=== PATIENT | male | born 1990 | race Caucasian/White ===

== ENCOUNTER 2019-03-01 12:10 | Emergency (ER) | payer MEDICAID ==
[~2019-03-01] VITALS: Ht 170.2 cm; Wt 88.9 kg
[2019-03-01 12:10] VITALS: BP 142/87
--- NOTE | 2019-03-01 12:19 | NUR ---
BIBA TO BED 5
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
--- NOTE | 2019-03-01 12:21 | NUR ---
ACCU CHECK 103
--- NOTE | 2019-03-01 12:22 | NUR ---
IV INSERTED BY EMS, PT RECEIVED 500 ML NS BOLUS IN ROUTE
[2019-03-01] MEDS ORDERED: NACL 0.9% 1,000 ML IV ONE ×2 (12:25→12:45)
--- NOTE | 2019-03-01 12:50 | NUR ---
UNABLE TO COMPLETE EKG AT THIS TIME; PT REMAINS UNCOOPERATIVE. NOTIFIED
--- NOTE | 2019-03-01 12:58 | NUR ---
REMAINS NON VERBAL--PT WILL CLENCH A FIST AND TAKE FAST DEEP BREATH- ENCOURAGED TO TRY AND RELAX WITH SLOW DEEP BREATH---REASSURED WE ARE HERE TO HELP.
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
[2019-03-01 13:55] LABS: BASOPHILS # (AUTO) 0.1 K/uL (0.00-0.22); BASOPHILS % (AUTO) 0.6 % (0.0-2.0); EOSINOPHILS % (AUTO) 0.4 % (0.0-4.0); HEMATOCRIT 45.4 % (36-52); HEMOGLOBIN 15.1 g/dL (12.0-18.0); LYMPHOCYTES # (AUTO) 1.7 K/uL (2.0-11.5); LYMPHOCYTES % (AUTO) 16.3 % (20.5-51.1); MEAN CORPUSCULAR HEMOGLOBIN 29 pg (27-31); MEAN CORPUSCULAR HGB CONC 33 g/dL (33-37); MEAN CORPUSCULAR VOLUME 87.1 fL (80-94); MONOCYTES # (AUTO) 0.9 K/uL (0.8-1.0); MONOCYTES % (AUTO) 8.4 % (1.7-9.3); NEUTROPHILS # (AUTO) 7.7 K/uL (1.8-7.7); NEUTROPHILS % (AUTO) 74.3 % (42.2-75.2); PLATELET COUNT (AUTO) 261 K/uL (140-450); RED BLOOD CELL COUNT(AUTO) 5.21 MIL/uL (4.20-6.10); RED CELL DISTRIBUTION WIDTH 13.4 % (11.6-13.7); WHITE BLOOD COUNT (AUTO) 10.4 K/uL (4.8-10.8)
[2019-03-01 14:02] LABS: ALBUMIN 3.8 g/dL (3.4-5.0); ANION GAP 14.3 (8-16); ASPARTATE AMINOTRANSFERASE 26 U/L (15-37); CARBON DIOXIDE 23.3 mmol/L (21-32); CHLORIDE 107 mmol/L (98-107); CREATININE 1.2 mg/dL (0.7-1.3); GFR ARICAN-AMERICAN 91 mL/min (>90); GLUCOSE 91 mg/dL (74-106); POTASSIUM 3.6 mmol/L (3.5-5.1); SODIUM SERUM 141 mmol/L (136-145); TOTAL BILIRUBIN 0.5 mg/dL (0.0-1.0); UREA NITROGEN, BLOOD 16 mg/dL (7-18)
[2019-03-01] MEDS ORDERED: KETOROLAC 30 MG/ML VIAL IVP ONE (15:05)
[2019-03-01] MEDS ORDERED: LORazepam 2 MG/ML VIAL IVP ONE (15:05)
[2019-03-01] MEDS ORDERED: IBUPROFEN 600 MG TAB PO ONE (15:20)
[2019-03-01 15:50] VITALS: BP 148/98
--- NOTE | 2019-03-01 15:50 | NUR ---
Patient discharged with v/s stable. Written and verbal after care instructions given and explained. Patient verbalized understanding. Ambulatory with steady gait. All questions addressed prior to discharge. Advised to follow up with PMD.
--- NOTE | 2019-03-01 15:50 | NUR ---
PER PT HE LIVES IN AN APARTMENT
== END 2019-03-01 15:50 | disposition home or self-care (01) ==
LOC: MED 12:10
DX: R51 Headache (principal); I10 Essential (primary) hypertension; F15.10 Other stimulant abuse, uncomplicated
CPT/HCPCS: 36415; 80053; 85025; 93005; 99284; G0482; J1885; J2060

== ENCOUNTER 2019-07-07 18:39 | Emergency (ER) | payer SELFPAY ==
[~2019-07-07] VITALS: Ht 162.6 cm; Wt 95.3 kg
[2019-07-07 18:52] VITALS: BP 120/81
--- NOTE | 2019-07-07 19:04 | NUR ---
PATIENT AMBULATED TO BED 5.
--- NOTE | 2019-07-07 19:16 | NUR ---
Dr. Hernandez examining patient.
--- NOTE | 2019-07-07 19:35 | NUR ---
Patient assessed by Dr Hernandez. Patient discharged with v/s stable. Written and verbal after care instructions about anaphylactic reaction given and explained. Patient alert, oriented and verbalized understanding of instructions. Ambulatory with steady gait. All questions addressed prior to discharge. ID band removed. Patient advised to follow up with PMD. Rx of benadryl allergy, pepcid, epipen, and prednisone given. Patient educated on indication of medication including possible reaction and side effects. Opportunity to ask questions provided and answered.
--- NOTE | 2019-07-07 19:35 | NUR ---
Note [email or web address] in EDM - 07/07/19 at 1942 by MEDOMAR Patient discharged with v/s stable. Written and verbal after care instructions about anaphylactic reaction given and explained. Patient alert, oriented and verbalized understanding of instructions. Ambulatory with steady gait. All questions addressed prior to discharge. ID band removed. Patient advised to follow up with PMD. Rx of benadryl allergy, pepcid, epipen, and prednisone given. Patient educated on indication of medication including possible reaction and side effects. Opportunity to ask questions provided and answered.
[2019-07-07 19:38] VITALS: BP 133/103
== END 2019-07-07 19:35 | disposition home or self-care (01) ==
LOC: MED 18:39
DX: T78.40XA Allergy, unspecified, initial encounter (principal); X58.XXXA Exposure to other specified factors, initial encounter
CPT/HCPCS: 99283